=== PATIENT | male | born 1980 | race Caucasian/White ===

== ENCOUNTER 2024-09-27 21:38 | Emergency (ER) | payer BC ==
[~2024-09-27] VITALS: Ht 170.2 cm; Wt 78.0 kg
[2024-09-27 22:06] VITALS: BP 155/113; PULSE 101; RESP 16; TEMP 37.1; O2SAT 98
== END 2024-09-27 22:26 | disposition left against medical advice (07) ==
LOC: ER 21:38
DX: G40.909 Epilepsy, unspecified, not intractable, without status epilepticus (principal); I10 Essential (primary) hypertension
CPT/HCPCS: 99283; 99285